=== PATIENT | female | born 1965 | race Caucasian/White ===

== ENCOUNTER 2016-08-17 18:53 | Emergency (ER) | payer OTHER ==
[2016-08-17 19:01] VITALS: BP 120/63; PULSE 63; RESP 16; TEMP 97.7; O2SAT 96
[2016-08-17] MEDS ORDERED: IBUPROFEN 600 MG TAB PO ONE (19:21)
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
== END 2016-08-17 19:42 | disposition home or self-care (01) ==
DX: R51 Headache (principal)

== ENCOUNTER → 2016-08-30 | Outpatient (CLI) | payer OTHER ==
--- NOTE | 2016-08-30 14:25 | US ---
Transabdominal and Transvaginal Pelvic Ultrasound History: 51-year-old likely postmenopausal female with bleeding for one year. No hormone therapy. Comparison: Pelvic ultrasound March 24, 2012. Findings: Transabdominal: The uterus measures 9.3 x 3.1 x 4.1 cm. The bladder is normal. Transvaginal: An exophytic subserosal fundal fibroid measuring 5.8 x 5.4 x 5.3 cm, previously measure d 5.0 x 6.1 x 3.9 cm. An intramural fundal fibroid measuring 9 x 9 x 8 mm was not visible on the prev ious study. The endometrium is homogeneous and measures 10 mm. The left ovary measures 4.3 x 2.1 x 2. 9 cm. The right ovary measures 3.2 x 1.9 x 2.8 cm. A 2.7 x 1.6 x 2.0 cm cyst in the right ovary has a fluid-fluid level. A simple 2.0 x 2.0 x 1.7 cm cyst is present in the left ovary. Normal arterial bl ood flow is documented to both ovaries by Doppler ultrasound. There is trace free fluid. Impression: 1. Thickened endometrium for a postmenopausal patient (within normal limits for a premenopausal patie nt). If the patient is truly postmenopausal, consider tissue sampling. 2. Bilateral ovarian cysts, measuring up to 2.7 cm. Recommend follow up in 6-12 weeks for a perimenop ausal patient to assess for resolution.
== END ==
LOC: BMCIMAGING 11:31
PROVIDERS: ATTEND Internal Medicine
DX: N95.0 Postmenopausal bleeding (principal); N83.201 Unspecified ovarian cyst, right side; N83.202 Unspecified ovarian cyst, left side

== ENCOUNTER → 2017-07-07 | Outpatient (CLI) | payer OTHER | LOC: BMCIMAGING 08:13 | PROVIDERS: ATTEND Internal Medicine | DX: Z12.31 Encounter for screening mammogram for malignant neoplasm of breast (principal) | CPT/HCPCS: G0202 ==

== ENCOUNTER → 2017-09-07 | Outpatient (CLI) | payer OTHER | LOC: FIMAGING 14:58 | PROVIDERS: ATTEND Internal Medicine | DX: R93.8 Abnormal findings on diagnostic imaging of other specified body structures (principal); D25.9 Leiomyoma of uterus, unspecified ==